=== PATIENT | female | born 1955 | race Caucasian/White ===

== ENCOUNTER → 2017-06-02 15:21 | Outpatient (CLI) | payer BC, SELFPAY ==
--- NOTE | 2017-06-02 15:23 | MM_ITS ---
MM Dig screening mamm BI w/CAD CAD Screening COMPARISON: Digital mammograms 04/19/2015 and follow-up additional views right breast 05/01/2015 and digital mammograms 04/30/2016 INDICATION: There is a history of breast cancer patient maternal cousin and paternal grandmother. There has been a previous cyst aspiration right breast. TECHNIQUE: Standard CC and MLO images were obtained. R2 CAD reviewed. FINDINGS: Prominent heterogenic fibroglandular densities are seen in both breast somewhat lessening the sensitivity of mammography. There are 2 mole markers right breast. There a few benign-appearing calcifications in each breast. There is no suspicious lesion and there are no suspicious microcalcifications. IMPRESSION: Stable exam no suspicious lesion seen recommend yearly follow-up BI-RADS Category: 2 Benign Finding(s) RECOMMENDED FOLLOW-UP: 1YR - 1 YEAR FOLLOW-UP (A letter has been sent to the patient regarding results of the study.)
== END ==
PROVIDERS: PCP Family Medicine; Visit Provider Obstetrics & Gynecology
DX: Z12.31 Encounter for screening mammogram for malignant neoplasm of breast (principal)
CPT/HCPCS: 77066; 77067

== ENCOUNTER → 2017-06-12 10:25 | Outpatient (CLI) | payer BC, SELFPAY ==
--- NOTE | 2017-06-12 10:33 | US_ITS ---
US kidney retroperitoneal comp HISTORY: ITS.REASON: ACUTE CYSTITIS WITH HEMATURIA ORDERING PHYSICIAN: Jeevan Mendez MD PATIENT AGE: 62 years COMPARISON: None FINDINGS: RIGHT KIDNEY:Unremarkable. Normal size and echogenicity. No hydronephrosis 11 x 5 x 5.5 cm LEFT KIDNEY:Unremarkable. No hydronephrosis. Normal size and echogenicity. 10 x 5.5 x 4.7 cm OTHER FINDINGS: On 1 image there is increased echogenicity along the lateral aspect of the gallbladder may be related to a gallstone. Dedicated gallbladder ultrasound may be of further value. IMPRESSION: 1. Unremarkable bilateral renal ultrasound 2. Possible cholelithiasis
== END ==
PROVIDERS: PCP Family Medicine; Visit Provider Family Medicine
DX: N30.01 Acute cystitis with hematuria (principal)
CPT/HCPCS: 76770

== ENCOUNTER → 2017-06-19 08:07 | Outpatient (CLI) | payer BC, SELFPAY ==
--- NOTE | 2017-06-19 08:12 | US_ITS ---
US abdomen limited COMPARISON: Ultrasound the kidneys 06/12/2017 HISTORY: Possible gallstone seen on recent ultrasound the kidneys TECHNIQUE: Targeted ultrasound right upper quadrant FINDINGS: The gallbladder is normal in size and there is a large calcified gallstone near the neck measuring 1.4 cm in length with discrete acoustic shadowing beneath. The common bile duct is normal in caliber. There is no intrahepatic biliary ductal dilatation. The liver appears grossly normal. The pancreas is normal in size showing mild fatty infiltration. Right kidney measures 11.4 x 3.9 x 4.9 cm and shows a good cortical medullary junction with no hydronephrosis. IMPRESSION: Obvious cholelithiasis
== END ==
PROVIDERS: PCP Family Medicine; Visit Provider Family Medicine
DX: R93.2 Abnormal findings on diagnostic imaging of liver and biliary tract (principal)
CPT/HCPCS: 76705

== ENCOUNTER → 2017-07-21 08:59 | Outpatient (CLI) | payer BC, SELFPAY ==
[2017-07-21 10:22] LABS: Basophils % 0.4 % (0.1-2.0); Eosinophils # 0.1 K/mm3 (0.0-0.4); Eosinophils % 1.1 % (0.1-12.0); Hematocrit 37.4 % (37.0-47.0); Hemoglobin 12.4 g/dL (12.2-16.2); Lymphocytes # 3.9 K/mm3 (0.7-4.5); Lymphocytes % 42.5 K/mm3 (10-50); Mean Corpuscular HGB Conc 33.1 g/dL (31.8-35.4); Mean Corpuscular Hemoglobin 31.8 pg (27.0-31.2); Mean Corpuscular Volume 96.1 fl (81-99); Mean Platelet Volume 7.9 fl (7.4-10.4); Monocytes # 0.4 K/mm3 (0.1-1.0); Monocytes % 4.7 % (1.7-9.3); Neutrophils # 4.7 K/mm3 (1.8-7.8); Neutrophils % 51.2 % (37.0-80.0); Platelet Count 246 K/mm3 (142-424); Red Blood Count 3.89 M/mm3 (4.20-5.40); Red Cell Distribution Width 13.3 % (11.5-17.5); White Blood Count 9.1 K/mm3 (4.8-10.8)
[2017-07-21 10:35] LABS: Alanine Aminotransferase 15 U/L (12-78); Albumin Level 3.2 gm/dL (3.4-5.0); Albumin/Globulin Ratio 0.8 (1.1-1.8); Alkaline Phosphatase 112 U/L (46-116); Anion Gap 11.1 mEq/L (5-15); Aspartate Amino Transferase 12 U/L (15-37); Bilirubin,Total 0.2 mg/dL (0.2-1.0); Blood Urea Nitrogen 11 mg/dL (7-18); Calcium 8.6 mg/dL (8.5-10.1); Carbon Dioxide 27 mmol/L (21.0-32.0); Chloride 106 mmol/L (98-107); Chol/HDL Ratio 5.4 (1-3.5); Cholesterol 227 mg/dL (140-200); Creatinine,Serum 0.58 mg/dL (0.55-1.02); Estimated Glomerular Filt Rate 105 ml/min (>60); Free T4 (Free Thyroxine) 0.79 ng/dl (0.76-1.46); GFR (African American) 127 ML/MIN (>60); Globulin 3.8 gm/dl (1.3-3.2); Glucose 103 mg/dL (74-106); HDL Cholesterol 42 mg/dL (29-89); LDL Cholesterol 139 mg/dL (0-130); Potassium 4.1 mmoL/L (3.5-5.1); Sodium 140 mmol/L (136-145); Thyroid Stimulating Hormone 2.76 uIU/ml (0.358-3.740); Triglycerides 230 mg/dL (30-200); VLDL Cholesterol 46 mg/dL (0-40)
== END ==
PROVIDERS: Visit Provider Surgery
DX: K80.20 Calculus of gallbladder without cholecystitis without obstruction (principal)
CPT/HCPCS: 36415; 80053; 80061; 84439; 84443; 85025

== ENCOUNTER → 2017-10-28 11:27 | Outpatient (CLI) | payer BC, SELFPAY ==
--- NOTE | 2017-10-28 11:33 | XR_ITS ---
EXAM: XR cervical spine 5V HISTORY: ITS.REASON: NECK PAIN ORDERING PHYSICIAN: Sarah Lobo MD PATIENT AGE: 62 years COMPARISON: None FINDINGS: There is straightening of normal curvature. C1-C6 appear grossly normal. C7 is only faintly seen on the lateral view and is grossly intact but the C7-T1 disc space is not evaluated. Oblique films show normal neural foramina bilaterally. C7 is well seen on the oblique views and appears normal. The prevertebral soft tissues are normal and the odontoid is normal. IMPRESSION: Findings suggesting muscle spasm, no bony abnormality seen
== END ==
PROVIDERS: PCP Family Medicine; Visit Provider Emergency Medicine
DX: M54.2 Cervicalgia (principal)
CPT/HCPCS: 72050

== ENCOUNTER → 2018-06-08 15:51 | Outpatient (CLI) | payer MEDICARE, BC, SELFPAY ==
--- NOTE | 2018-06-08 15:56 | MM_ITS ---
MM Dig screening mamm BI w/CAD CAD Screening COMPARISON: Digital mammograms with CAD 04/30/2016 and 06/02/2017 INDICATION: There is a history of breast cancer patient's paternal aunt mother and maternal cousin. There has been a previous biopsy right breast for benign disease. TECHNIQUE: Standard CC and MLO images were obtained. R2 CAD reviewed. FINDINGS: There is a diffusely dense and heterogenic parenchymal pattern lessening the sensitivity of mammography. There is a mole marker right breast along with multiple benign-appearing microcalcifications. There are couple of benign-appearing microcalcifications left breast as well. There is no suspicious lesion and there are no suspicious microcalcifications. IMPRESSION: Diffusely dense parenchymal pattern with no suspicious lesion seen BI-RADS Category: 2 Benign Finding(s) RECOMMENDED FOLLOW-UP: 1YR - 1 YEAR FOLLOW-UP (A letter has been sent to the patient regarding results of the study.)
== END ==
PROVIDERS: PCP Family Medicine; Visit Provider Obstetrics & Gynecology
DX: Z12.31 Encounter for screening mammogram for malignant neoplasm of breast (principal)
CPT/HCPCS: 77067

== ENCOUNTER → 2019-10-03 10:40 | Outpatient (CLI) | payer MEDICARE, BC, SELFPAY ==
[2019-10-03 14:18] LABS: Coronavirus 19 IgG Antibody Negative (Negative); Coronavirus 19 IgM Antibody Negative (Negative)
== END ==
PROVIDERS: Visit Provider Surgery
DX: Z01.818 Encounter for other preprocedural examination (principal)
CPT/HCPCS: 36415; 86328

== ENCOUNTER 2019-10-04 07:43 | Day surgery (SDC) | payer MEDICARE, BC, SELFPAY ==
--- NOTE | 2019-09-30 14:55 | SUR.PREOP ---
09/30/2019 @ 3619--PHONE CALL MADE TO PATIENT. PATIENT UNDERSTANDS THAT LAB WORK AND COVID TESTING NEEDS TO BE COMPLETED BETWEEN 8-12 ON 10/03/2019. PATIENT UNDERSTANDS IF LAB WORK AND COVID-19 TESTS ARE NOT COMPLETED BY 12PM ON THAT DATE, THE SURGERY SCHEDULED WILL BE CANCELLED AND RESCHEDULED FOR ANOTHER TIME.
[2019-10-03 09:03] VITALS: BMI 30.7
[2019-10-04 08:19] VITALS: BP 157/77; PULSE 66; RESP 18; TEMP 36.6; O2SAT 97
--- NOTE | 2019-10-04 08:30 | HMH.GSHP ---
HPI HPI: Patient presents for colonoscopy. She is a 64-year-old female whom I had seen in the past extensively for upper GI issues and have performed several upper endoscopies on her for surveillance. She has had hyperplastic polyps. She has been on pantoprazole. I had performed colonoscopy on her 5 years ago on 04/18/2014. It was recommended she undergo colonoscopy 5 years given family history with colon cancer in her mother, maternal grandfather, and brother. She is without complaints regarding changes in her bowels or rectal bleeding. [facility] History I have reviewed the patient's past medical history: Yes Medical History: Reports:: Gall Bladder Disease, Gastroesophageal Reflux Disease(GERD), Urinary Tract Infection Denies:: Cancer, Diabetes Mellitus Type 1, Diabetes Mellitus Type 2, Internal Pacemaker, MRSA, Seizures *Have you ever received a pneumonia vaccine?: Yes *Have you received a flu vaccine this season?: No Other Medical History: Reports: Hypothyroidism, Thyroid Disease. Denies: Blood Transfusion Reaction Laterality Cases: Bilateral: Breast Biopsy Other Surgeries: Yes: Appendectomy, Colonoscopy, , Dilation and Curettage, EGD, Hysterectomy-Total, Other. No: Pacemaker Amputation: No Fractures: No - *Social History Educational Level: Completed High School Smoking Status: Never smoker Alcohol Intake: current Alcohol Intake Frequency:: 0-2 drinks per day Substance Use Type: denies use *Occupational Status:: unemployed Housing: house Household Members: spouse *Travel in the last 8 weeks: None Family Hx:: Diabetes, Coronary Artery Disease, Cancer Review of Systems - Review of Systems Review of systems:: pertinent systems reviewed and negative unless documented below Meds Home Medications Medication Instructions Recorded Confirmed Type flaxseed oil 1,000 mg capsule 1,000 mg PO DAILY 05/20/17 10/04/19 History levothyroxine 25 mcg capsule 25 mcg PO DAILY 05/20/17 10/04/19 History mecobalamin (vitamin B12) 5,000 5,000 mcg PO DAILY 05/20/17 10/04/19 History mcg disintegrating tablet vitamin E 200 unit capsule 200 unit PO DAILY 05/20/17 10/04/19 History pantoprazole 40 mg tablet,delayed 40 mg PO QAM #30 tab 06/02/18 10/04/19 Rx release [id number]/Sod Sulf,Bicarb,Cl/KCl 240 ml PO Q10M 10/03/19 10/04/19 History [Golytely] Sod Phosphate Mbas/Sod Phos,Di 4 tab PO Q15M 10/03/19 10/04/19 History [OsmoPrep] estradioL [Estradiol] 1 mg PO DAILY 10/03/19 10/04/19 History Allergies Allergy/AdvReac Type Severity Reaction Status Date / Time No Known Allergies Allergy Verified 10/04/19 08:20 Exam Vital signs and Labs for Last 24 Hours: Temp Pulse Resp BP Pulse Ox 97.8 F 66 18 157/77 H 97 10/04/19 08:19 10/04/19 08:19 10/04/19 08:19 10/04/19 08:19 10/04/19 08:19 I & O for Last 24 hours: Intake & Output 10/01/19 10/02/19 10/03/19 10/04/19 11:59 11:59 11:59 11:59 Weight 157 lb - *Routine HEENT Exam Head: Present: normocephalic Eye: Present: EOMI, PERRL ENT: Present: mucous membranes moist - *Routine Neck Exam Present: supple. Absent: lymphadenopathy - *Routine Respiratory Exam Present: CTA bilaterally - *Routine Cardiovascular Exam Present: RRR - *Routine Abdominal Exam Present: soft, normoactive bowel sounds. Absent: tenderness - *Routine Extremities Exam Absent: cyanosis, clubbing, edema - *Routine Skin Exam Present: warm. Absent: rash - *Routine Neurological Exam Present: alert, oriented X3 Assessment and Plan - Assessment and plan all Dx Assessment and Plan for all problems:: Plan to proceed with colonoscopy due to family history
--- NOTE | 2019-10-04 09:03 | P.PN_ITS ---
[facility] Anesthesia Checklist - Patient Identification Patient Identification: Arm Band, Verbal (Name & ) - Structural Data Admitted From: Home Planned Operative Procedure/s: colon Consent for Planned Operative Procedure(s) Verified: Yes Verified Documents: History and Physical - NPO Status Verified Time NPO: 00:00 - Chart Verification Results Verified: CBC, BMP - Additional verifications Patient : No Anesthesia Reactions: No Hx Blood Transfusions: No Blood Transfusion Reaction: No Cephalosporin Allergy: No Previous Colonoscopy: Yes - Cardiovascular Assessment Heart Sounds: S1 & S2 Pulse Strength: Baseline Pulse Rhythm: Regular Peripheral Edema: No - Airway Assessment C-Spine Mobility Assessed: Yes TMJ Mobility Assessed: Yes Dentition: Good Dentition - Neurological Assessment Level of Consciousness: Awake, Alert, Appropriate Hx Seizures: No Numbness or tingling in extremities: No - Anesthesia Plan Anesthesia Risk discussed: Yes Anesthesia Plan: Verified ASA Class: II Anesthesia Type: MAC [facility] History I have reviewed the patient's past medical history: Yes Medical History: Reports:: Gall Bladder Disease, Gastroesophageal Reflux Disease(GERD), Urinary Tract Infection Denies:: Cancer, Diabetes Mellitus Type 1, Diabetes Mellitus Type 2, Internal Pacemaker, MRSA, Seizures *Have you ever received a pneumonia vaccine?: Yes *Have you received a flu vaccine this season?: No Other Medical History: Reports: Hypothyroidism, Thyroid Disease. Denies: Blood Transfusion Reaction Anesthesia experience/problems:: none Laterality Cases: Bilateral: Breast Biopsy Other Surgeries: Yes: Appendectomy, Colonoscopy, , Dilation and Curettage, EGD, Hysterectomy-Total, Other. No: Pacemaker Amputation: No Fractures: No - *Social History Educational Level: Completed High School Smoking Status: Never smoker Alcohol Intake: current Alcohol Intake Frequency:: 0-2 drinks per day Substance Use Type: denies use *Occupational Status:: unemployed Housing: house Household Members: spouse *Travel in the last 8 weeks: None Family Hx:: Diabetes, Coronary Artery Disease, Cancer
[2019-10-04 09:09] VITALS: O2SAT 97
[2019-10-04 09:42] VITALS: BP 140/72; PULSE 89; RESP 20; TEMP 36.3; O2SAT 96
--- NOTE | 2019-10-04 09:43 | P.PCN_ITS ---
- Procedure: Date: 10/04/19 Procedure Performed:: Total colonoscopy with polypectomy by snare Indications:: Patient presents for colonoscopy. She is a 64-year-old female whom I had seen in the past extensively for upper GI issues and have performed several upper endoscopies on her for surveillance. She has had hyperplastic polyps. She has been on pantoprazole. I had performed colonoscopy on her 5 years ago on 04/18/2014. It was recommended she undergo colonoscopy 5 years given family hi story with colon cancer in her mother, maternal grandfather, and brother. She states the morning of her procedure that a maternal cousin was diagnosed with colon cancer recently. She is without complaints regarding changes in her bowels or rectal bleeding. Performing Provider:: Edin Pierce MD Referring Provider:: None Sedation:: Propofol Procedure:: Patient was taken to endoscopy procedure room. She was positioned in a lateral decubitus position. Adequate intravenous sedation was achieved with anesthesia titration of propofol. Variable stiffness Olympus colonoscope was inserted via the anus and with some minimal difficulty due to floppiness of the sigmoid colon it was advanced to the cecum. Appendiceal orifice were clearly identified. Colonoscope was slowly withdrawn through the colon with careful surveillance. Within the ascending colon it was noted that she had a small polyp which was removed upon advancement of the colonoscope with cold cutting snare. This was possibly serrated adenoma based on its appearance. Colonoscope was withdrawn through the colon. There were possibly some beginnings of some minimal diverticuli in the left colon. Retroflexion within the rectum revealed some nonbleeding nonpathologic appearing internal hemorrhoids. Colonoscope was withdrawn. Findings:: Ascending colon polyp, possibly serrated adenoma Hemorrhoids Beginnings of diverticuli Recommendations:: Pending the pathology likely repeat colonoscopy 2 or 3 years. Complications:: None immediately apparent Estimated blood obtained (mL): 2
[2019-10-04 09:52] VITALS: BP 126/69; PULSE 69; RESP 18; TEMP 36.3; O2SAT 98
[2019-10-04 10:02] VITALS: BP 125/72; PULSE 65; RESP 20; TEMP 36.3; O2SAT 97
[2019-10-04 10:16] VITALS: BP 122/87; PULSE 62; RESP 20; TEMP 36.3; O2SAT 98
== END 2019-10-04 10:17 | disposition home or self-care (01) ==
LOC: OUTP 07:45
PROVIDERS: PCP Family Medicine; Visit Provider Surgery
PROC: 0DJD8ZZ Inspection of Lower Intestinal Tract, Via Natural or Artificial Opening Endoscopic (ICD-10-PCS; CPT 45385; principal; 2019-10-04 09:00)
DX: K63.5 Polyp of colon (principal); K57.30 Diverticulosis of large intestine without perforation or abscess without bleeding; K64.9 Unspecified hemorrhoids; Z87.19 Personal history of other diseases of the digestive system; Z80.0 Family history of malignant neoplasm of digestive organs; K82.9 Disease of gallbladder, unspecified; K21.9 Gastro-esophageal reflux disease without esophagitis; Z87.440 Personal history of urinary (tract) infections; E03.9 Hypothyroidism, unspecified; Z90.49 Acquired absence of other specified parts of digestive tract; Z90.710 Acquired absence of both cervix and uterus; Z79.899 Other long term (current) drug therapy; Z12.11 Encounter for screening for malignant neoplasm of colon
CPT/HCPCS: 45385; 88305

== ENCOUNTER 2019-12-05 09:54 | Emergency (ER) | payer MEDICARE, BC, SELFPAY ==
[2019-12-05] VITALS (7 sets, daily range): BP systolic 140–172; BP diastolic 70–92; PULSE 65–66; RESP 15–22; TEMP 36.7–36.8; O2SAT 97–99; BMI 30.2
--- NOTE | 2019-12-05 09:52 | ECG_ITS ---
APPROVED REPORT Exam: Resting ECG HR:63 bpm ECG Measurements Heart Rate 63 AXES AR 176 P 65 QRSd 84 QRS -63 QT 426 T 80 QTc 435 <Conclusion> Normal sinus rhythm Left axis deviation,LAHB Incomplete RBBB Abnormal ECG Electronically signed by : Jono Gordon, 12/05/2019 18:38:28
--- NOTE | 2019-12-05 10:01 | XR_ITS ---
PROCEDURE: XR CHEST 2V CLINICAL HISTORY: CP Chest pain COMPARISON: CR CXR CHEST(2 VIEWS-NOT PORTABLE) from 04/22/2013 FINDINGS: The cardiomediastinal silhouette and pulmonary vascularity are within normal limits. The lungs are clear without infiltrates, suspicious nodules, or pleural effusions. No acute bony abnormalities. IMPRESSION: No acute findings. Dictated by: Juan F Medellin MD 12/05/2019 11:31 Juan F Medellin MD in [facility] 12/05/2019 11:31
[2019-12-05 10:14] LABS: Basophils # 0.1 K/mm3 (0-0.2); Basophils % 0.6 % (0.1-2.0); Eosinophils # 0.1 K/mm3 (0.0-0.4); Eosinophils % 1.4 % (0.1-12.0); Hematocrit 39.3 % (37.0-47.0); Hemoglobin 13.2 g/dL (12.2-16.2); Lymphocytes # 4.2 K/mm3 (0.7-4.5); Lymphocytes % 43.3 % (10-50); Mean Corpuscular HGB Conc 33.7 g/dL (31.8-35.4); Mean Corpuscular Hemoglobin 32.6 pg (27.0-31.2); Mean Corpuscular Volume 96.9 fl (81-99); Mean Platelet Volume 7.8 fl (7.4-10.4); Monocytes # 0.5 K/mm3 (0.1-1.0); Monocytes % 5.2 % (1.7-9.3); Neutrophils # 4.8 K/mm3 (1.8-7.8); Neutrophils % 49.5 % (37.0-80.0); Platelet Count 245 K/mm3 (142-424); Red Blood Count 4.06 M/mm3 (4.20-5.40); Red Cell Distribution Width 13.8 % (11.5-17.5); White Blood Count 9.8 K/mm3 (4.8-10.8)
--- NOTE | 2019-12-05 10:19 | HMH.EDGENADL ---
ED Disposition Clinical Impression: Atypical chest pain, Musculoskeletal back pain, Gastric reflux Disposition: Home, Self-Care Condition on Discharge: Good Instructions: DI for Gastroesophageal Reflux Disease (GERD), DI for Atypical Chest Pain, DI for Musculoskeletal Pain Referrals: Joaquim Don MD [Primary Care Provider] - Time of Disposition: 11:47 - Critical Care Critical Care Time: No Attestation: On 12/05/19, the high probability of a clinically significant, sudden or life threatening deterioration of the following system(s) required my full and direct attention, intervention and personal management. The time I documented below is in addition to time spent performing reported procedures but includes the following listed in this critical care notation. Medical Decision Making - Medical Records Medical records reviewed: Yes: I reviewed the patient's medical records. - [place] Inquiry Pt receiving controlled substance: No Vital Signs: 12/05/19 09:55 12/05/19 10:25 12/05/19 10:30 Temperature 98.2 F Temperature Source Oral Pulse Rate Pulse Rate [Right] 66 65 65 Respiratory Rate 15 18 18 Blood Pressure Blood Pressure [Right Arm] 172/83 H 154/75 H 156/79 H Blood Pressure Mean [Right Arm] 112 101 104 Blood Pressure Source Blood Pressure Source [Right Arm] Automatic Cuff Blood Pressure Position Blood Pressure Position [Right Arm] Supine 02 Sat by Pulse Oximetry 98 99 99 Oxygen Delivery Method 12/05/19 11:00 12/05/19 11:30 12/05/19 12:00 Temperature Temperature Source Pulse Rate Pulse Rate [Right] 66 65 66 Respiratory Rate 22 18 18 Blood Pressure Blood Pressure [Right Arm] 159/92 H 144/73 H 140/70 Blood Pressure Mean [Right Arm] 114 96 93 Blood Pressure Source Blood Pressure Source [Right Arm] Automatic Cuff Automatic Cuff Automatic Cuff Blood Pressure Position Blood Pressure Position [Right Arm] Supine Supine Supine 02 Sat by Pulse Oximetry 97 99 99 Oxygen Delivery Method 12/05/19 12:47 Temperature 98.1 F Temperature Source Oral Pulse Rate 66 Pulse Rate [Right] Respiratory Rate 18 Blood Pressure 140/70 Blood Pressure [Right Arm] Blood Pressure Mean [Right Arm] Blood Pressure Source Automatic Cuff Blood Pressure Source [Right Arm] Blood Pressure Position Sitting Blood Pressure Position [Right Arm] 02 Sat by Pulse Oximetry Oxygen Delivery Method Room Air - Lab Data Lab Results 12/05/19 10:00: WBC 9.8, RBC 4.06 L, Hgb 13.2, Hct 39.3, MCV 96.9, MCH 32.6 H, MCHC 33.7, RDW 13.8, Plt Count 245, MPV 7.8, Neut % (Auto) 49.5, Lymph % (Auto) 43.3, Darke % (Auto) 5.2, Eos % (Auto) 1.4, Baso % (Auto) 0.6, Neut # (Auto) 4.8, Lymph # (Auto) 4.2, Darke # (Auto) 0.5, Eos # (Auto) 0.1, Baso # (Auto) 0.1 12/05/19 10:00: Sodium 138, Potassium 3.8, Chloride 103, Carbon Dioxide 27, Anion Gap 11.8, BUN 11, Creatinine 0.50 L, Estimated Creat Clear 61, Estimated GFR 123, Est GFR ( Amer) 149, Glucose 107 H, Calcium 9.3, Troponin I < 0.01 12/05/19 10:00: NT-Pro-B Natriuret Pep 135 H 12/05/19 10:00: D-Dimer 0.44 12/05/19 12:01: Troponin I < 0.01 Result diagrams: 12/05/19 10:00 12/05/19 10:00 Orders (Tests/Meds): ED MEDICATIONS Discontinued Medications Generic Name Dose Route Start Last Admin Trade Name Andrei PRN Reason Stop Dose Admin Aspirin 324 mg 12/05/19 10:01 12/05/19 10:03 Aspirin 81mg Chewable Tablet PO 12/05/19 10:02 324 mg ONCE ONE Administration Ioversol 75 ml 12/05/19 11:08 12/05/19 11:09 Rad-Optiray 350 100ml Vial IV 12/05/19 11:09 75 ml ONCE ONE Administration Protocol Ketorolac Tromethamine 15 mg 12/05/19 11:44 12/05/19 11:47 Toradol 30mg/Ml Vial IV 12/05/19 11:45 15 mg ONCE ONE Administration Sodium Chloride 10 ml 12/05/19 11:08 12/05/19 11:09 Rad-Saline Flush 10ml Syringe IV 12/05/19 11:09 10 ml ONCE ONE Administration Sodium Chloride 50 ml 12/05/19 11:08 12/04
[2019-12-05 10:21] LABS: Anion Gap 11.8 mEq/L (5-15); Blood Urea Nitrogen 11 mg/dl (7-17); Calcium 9.3 mg/dl (8.4-10.2); Carbon Dioxide 27 mmol/L (22.0-30.0); Chloride 103 mmol/L (98-107); Creatinine Clearance Estimated 61 mL/min (50-200); Estimated Glomerular Filt Rate 123 ml/min (>60); GFR (African American) 149 ML/MIN (>60); Glucose 107 mg/dl (74-100); Potassium 3.8 mmoL/L (3.5-5.1); Sodium 138 mmol/L (136-145)
[2019-12-05 10:26] LABS: D-Dimer 0.44 ug/mL (0.15-8.0)
[2019-12-05 10:32] LABS: NT Pro Brain Natriuretic Pep. 135 pg/mL (0-125)
[2019-12-05 10:35] LABS: Troponin I < 0.01 ng/ml (0.00-0.034)
--- NOTE | 2019-12-05 10:43 | CT_ITS ---
PROCEDURE: CT ANGIO CHEST CLINCIAL INDICATION: chest pain, radiating to back COMPARISON: No exams were available for comparison TECHNIQUE: IV Contrast: 70ML OPTIRAY 350 Axial images obtained with sagittal and coronal reformats. All CT scans at the facility use one or more dose reduction, viz: automated exposure control, ma/kV adjustment per patient size (including targeted exams where dose is matched to indication, i.e. head), or iterative reconstruction technique. FINDINGS: HEART AND MEDIASTINAL STRUCTURES: No mediastinal or hilar mass or adenopathy. No evidence of aortic aneurysm or dissection. Coronary artery calcifications are present. There is no evidence of pulmonary embolus. There is mild dilatation the right main pulmonary artery measuring 2.8 cm. LUNGS AND PLEURAL SPACES: No lobar consolidation or collapse. There is minimal atelectatic change in the left lower lobe posteriorly. BONY STRUCTURES: Degenerative changes in the thoracic spine UPPER ABDOMEN: Unremarkable. ADDITIONAL FINDINGS: No other significant abnormalities. IMPRESSION: 1. No acute finding. No evidence of pulmonary embolus. 2. Nonspecific mild dilatation of the right main pulmonary artery Dictated by: Juan F Medellin MD 12/05/2019 11:26 Juan F Medellin MD in [facility] 12/05/2019 11:26
--- NOTE | 2019-12-05 10:59 | PC.NURSE ---
pt going to ct
[2019-12-05 12:37] LABS: Troponin I < 0.01 ng/ml (0.00-0.034)
== END 2019-12-05 12:48 | disposition home or self-care (01) ==
PROVIDERS: Emergency Provider Emergency Medicine; PCP Family Medicine
DX: R07.89 Other chest pain (principal); K21.9 Gastro-esophageal reflux disease without esophagitis; E03.9 Hypothyroidism, unspecified; Z90.49 Acquired absence of other specified parts of digestive tract; Z90.710 Acquired absence of both cervix and uterus; R06.02 Shortness of breath
CPT/HCPCS: 71046; 71275; 80048; 83880; 84484; 85025; 85378; 93005; 96374; 99284; Q9967

== ENCOUNTER → 2020-08-02 13:04 | Outpatient (CLI) | payer MEDICARE, BC, SELFPAY ==
--- NOTE | 2020-08-02 13:04 | MM_ITS ---
PROCEDURE INFORMATION: Exam: MG Screening 3D Mammography Exam date and time: 08/02/2020 1:04 PM Age: 65 years old Clinical indication: Screening mammogram. Family history of breast cancer TECHNIQUE: Imaging protocol: Screening tomosynthesis and 2D mammography including computer-aided detection (CAD) when performed. COMPARISON: 1. MG SCBI MM Dig screening mamm BI w/CAD 06/08/2018 4:08 PM 2. MG SCBI MM Dig screening mamm BI w/CAD 06/02/2017 3:43 PM 3. MG DMSB DIG MAMM-SCREEN ALEXY W/CAD 04/30/2016 9:13 AM 4. MG DMDXUAVR DIG MAMM-DX UNI ADD VIEWS-RT 05/01/2015 1:06 PM FINDINGS: MAMMOGRAPHY: Breast composition: The breast tissue is heterogeneously dense, which may obscure small masses. Mass: Stable benign-appearing nodule is present in the left breast. No new or morphologically suspicious nodule has developed to suggest malignancy. Architectural distortion: No new or suspicious architectural distortion. Calcifications: No new or suspicious calcifications are present Asymmetric density: No new or suspicious asymmetric density is present Skin thickening: None. Axillary adenopathy: None. IMPRESSION: No mammographic evidence of malignancy. Recommend annual screening mammography unless otherwise clinically indicated. ASSESSMENT: BI-RADS category 2: Benign
== END ==
PROVIDERS: PCP Family Medicine; Visit Provider Obstetrics & Gynecology
DX: Z12.31 Encounter for screening mammogram for malignant neoplasm of breast (principal)
CPT/HCPCS: 77063; 77067

== ENCOUNTER → 2020-10-09 11:18 | Outpatient (POV) | payer MEDICARE, BC, SELFPAY | PROVIDERS: Visit Provider Dermatology | DX: Z00.00 Encounter for general adult medical examination without abnormal findings (principal) ==

== ENCOUNTER → 2022-01-01 09:01 | Outpatient (CLI) | payer MEDICARE, BC, SELFPAY ==
[2022-01-01 10:48] LABS: Chloride 99 mmol/L (98-107); Potassium 5.3 mmoL/L (3.5-5.1); Sodium 138 mmol/L (136-145)
[2022-01-01 10:51] LABS: Alanine Aminotransferase 14 U/L (12-78); Albumin/Globulin Ratio 1.4 (1.1-1.8); Alkaline Phosphatase 95 U/L (38-126); Anion Gap 12.3 mEq/L (5-15); Aspartate Amino Transferase 20 U/L (14-36); Bilirubin,Total 0.2 mg/dl (0.2-1.3); Blood Urea Nitrogen 19 mg/dl (7-17); Carbon Dioxide 32 mmol/L (22.0-30.0); Chol/HDL Ratio 5.6 (1-3.5); Cholesterol 288 mg/dl (140-200); Estimated Glomerular Filt Rate 71 ml/min (>60); GFR (African American) 86 ML/MIN (>60); Globulin 2.9 g/dL (1.3-3.2); Glucose 86 mg/dl (74-100); HDL Cholesterol 51 mg/dl (40-60); Total Protein,Serum 6.9 g/dl (6.3-8.2); Triglycerides 217 mg/dl (30-150); VLDL Cholesterol 43 mg/dL (0-40)
[2022-01-01 11:03] LABS: Direct LDL Cholesterol 199.99 mg/dL (100-129)
[2022-01-01 11:22] LABS: Thyroid Stimulating Hormone 3.02 uIU/mL (0.465-4.68)
== END ==
PROVIDERS: PCP Family Medicine; Visit Provider Family Medicine
DX: E78.5 Hyperlipidemia, unspecified (principal); E03.9 Hypothyroidism, unspecified
CPT/HCPCS: 36415; 80053; 80061; 84443

== ENCOUNTER → 2022-07-03 09:35 | Outpatient (CLI) | payer MEDICARE, BC, SELFPAY ==
[2022-07-03 10:28] LABS: Alanine Aminotransferase 20 U/L (12-78); Albumin Level 3.9 g/dl (3.5-5.0); Albumin/Globulin Ratio 1.6 (1.1-1.8); Alkaline Phosphatase 106 U/L (38-126); Anion Gap 10.2 mEq/L (5-15); Aspartate Amino Transferase 25 U/L (14-36); Bilirubin,Total 0.3 mg/dl (0.2-1.3); Blood Urea Nitrogen 13 mg/dl (7-17); Calcium 8.4 mg/dl (8.4-10.2); Carbon Dioxide 26 mmol/L (22.0-30.0); Chloride 104 mmol/L (98-107); Cholesterol 140 mg/dl (140-200); Estimated Glomerular Filt Rate 99 ml/min (>60); GFR (African American) 120 ML/MIN (>60); Globulin 2.5 g/dL (1.3-3.2); Glucose 104 mg/dl (74-100); HDL Cholesterol 46 mg/dl (40-60); Potassium 4.2 mmoL/L (3.5-5.1); Sodium 136 mmol/L (136-145); Total Protein,Serum 6.4 g/dl (6.3-8.2); Triglycerides 140 mg/dl (30-150); VLDL Cholesterol 28 mg/dL (0-40)
[2022-07-03 10:40] LABS: Direct LDL Cholesterol 78.84 mg/dL (100-129)
[2022-07-03 10:44] LABS: Free T4 (Free Thyroxine) 0.76 ng/dl (0.78-2.19)
[2022-07-03 10:58] LABS: Thyroid Stimulating Hormone 1.68 uIU/mL (0.465-4.68)
== END ==
PROVIDERS: PCP Physician Assistant; Visit Provider Physician Assistant
DX: E03.9 Hypothyroidism, unspecified (principal); E78.2 Mixed hyperlipidemia; I10 Essential (primary) hypertension
CPT/HCPCS: 36415; 80053; 80061; 84439; 84443

== ENCOUNTER → 2022-07-07 12:49 | Outpatient (CLI) | payer MEDICARE, BC, SELFPAY ==
--- NOTE | 2022-07-07 12:50 | MM_ITS ---
PROCEDURE INFORMATION: Exam: MG Bilateral Screening 3D Mammography Exam date and time: 07/07/2022 12:49 PM Age: 67 years old Clinical indication: Screening. Her paternal grandmother and cousin had breast cancer. TECHNIQUE: Imaging protocol: Bilateral Screening tomosynthesis and 2D mammography including computer-aided detection (CAD) when performed. COMPARISON: 1. MG MM DIG SCREENING MAMM BI W/CAD 08/02/2020 1:01 PM 2. MG SCBI MM Dig screening mamm BI w/CAD 06/08/2018 4:08 PM 3. MG SCBI MM Dig screening mamm BI w/CAD 06/02/2017 3:43 PM 4. MG DMSB DIG MAMM-SCREEN ALEXY W/CAD 04/30/2016 9:13 AM FINDINGS: MAMMOGRAPHY: Breast composition: The breasts are heterogeneously dense, which may obscure small masses. Mass: No suspicious mass Architectural distortion: None. Calcifications: No suspicious calcifications. Asymmetric density: None. Skin thickening: None. Axillary adenopathy: None. Other: Right biopsy clip. IMPRESSION: No mammographic evidence of malignancy. Annual screening is recommended unless otherwise clinically indicated. ASSESSMENT: BI-RADS Category 1: Negative
== END ==
PROVIDERS: PCP Physician Assistant; Visit Provider Obstetrics & Gynecology
DX: Z12.31 Encounter for screening mammogram for malignant neoplasm of breast (principal)
CPT/HCPCS: 77063; 77067

== ENCOUNTER 2023-06-10 13:26 | Outpatient (CLI) | payer MEDICARE, BC, SELFPAY ==
[2023-06-10 15:21] LABS: Creatinine,Urine Random 106 mg/dL (Not Estab.)
[2023-06-10 15:24] LABS: Alanine Aminotransferase 18 U/L (12-78); Albumin Level 4.3 g/dl (3.5-5.0); Albumin/Globulin Ratio 1.4 (1.1-1.8); Alkaline Phosphatase 111 U/L (38-126); Anion Gap 10.1 mEq/L (5-15); Aspartate Amino Transferase 26 U/L (14-36); Bilirubin,Total 0.6 mg/dl (0.2-1.3); Blood Urea Nitrogen 10 mg/dl (7-17); Calcium 9.2 mg/dl (8.4-10.2); Carbon Dioxide 28 mmol/L (22.0-30.0); Chloride 105 mmol/L (98-107); Chol/HDL Ratio 3.6 (1-3.5); Cholesterol 191 mg/dl (140-200); Estimated Glomerular Filt Rate 99 ml/min (>60); GFR (African American) 120 ML/MIN (>60); Glucose 97 mg/dl (74-100); HDL Cholesterol 53 mg/dl (40-60); Potassium 4.1 mmoL/L (3.5-5.1); Sodium 139 mmol/L (136-145); Total Protein,Serum 7.3 g/dl (6.3-8.2); Triglycerides 166 mg/dl (30-150); VLDL Cholesterol 33 mg/dL (0-40)
[2023-06-10 15:36] LABS: Direct LDL Cholesterol 100.38 mg/dL (100-129)
[2023-06-10 15:40] LABS: Free T4 (Free Thyroxine) 0.73 ng/dl (0.78-2.19)
[2023-06-10 15:53] LABS: Thyroid Stimulating Hormone 1.18 uIU/mL (0.465-4.68)
== END 2023-06-10 23:59 ==
LOC: LAB 13:32
PROVIDERS: PCP Family Medicine; Visit Provider Family Medicine
DX: I10 Essential (primary) hypertension (principal); E78.2 Mixed hyperlipidemia; E03.9 Hypothyroidism, unspecified
CPT/HCPCS: 36415; 80053; 80061; 82043; 82570; 84439; 84443

== ENCOUNTER 2023-07-21 12:58 | Outpatient (CLI) | payer MEDICARE, BC, SELFPAY ==
--- NOTE | 2023-07-21 12:58 | MM_ITS ---
PROCEDURE INFORMATION: Exam: Bilateral Screening 3D Mammography Exam date and time: 07/21/2023 12:54 PM Age: 68 years old Clinical indication: Screening examination TECHNIQUE: Imaging protocol: Bilateral Screening tomosynthesis and 2D mammography including computer-aided detection (CAD) when performed. COMPARISON: No relevant prior studies available. FINDINGS: MAMMOGRAPHY: Breast composition: The breasts are heterogeneously dense, which may obscure small masses. Mass: None. Architectural distortion: None. Calcifications: No suspicious calcifications. Asymmetric density: None. Skin thickening: None. Axillary adenopathy: None. IMPRESSION: No mammographic evidence of malignancy. Annual screening is recommended unless otherwise clinically indicated. ASSESSMENT: BI-RADS Category 1: Negative
== END 2023-07-21 23:59 ==
LOC: RAD 12:58
PROVIDERS: PCP Family Medicine; Visit Provider Obstetrics & Gynecology
DX: Z12.31 Encounter for screening mammogram for malignant neoplasm of breast (principal)
CPT/HCPCS: 77063; 77067

== ENCOUNTER 2024-02-10 19:10 | Emergency (ER) | payer SELFPAY ==
[2024-02-10 19:23] VITALS: BP 161/74; PULSE 72; RESP 18; TEMP 36.8; O2SAT 97; BMI 26.4
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
[2024-02-10 19:49] VITALS: BP 181/86; PULSE 76; RESP 18; TEMP 36.6; O2SAT 95; BMI 29.2
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
[2024-02-10] MEDS: ACETAMINOPHEN 500MG TAB 1000 MG PO (20:09)
[2024-02-10] MEDS: METHOCARBAMOL 500MG TABLET 500 MG PO (20:10)
[2024-02-10] MEDS: LIDOCAINE 5% TRANSDERMAL PATCH 1 EACH TP (20:11)
[2024-02-10 21:17] VITALS: BP 158/72; PULSE 70; RESP 17; TEMP 36.8; O2SAT 98
[2024-02-10 21:32] LABS: HIV (1&2) Antibody Rapid NONREACTIVE (NONREACTIVE)
[2024-02-12 08:21] LABS: HCV Ab Non Reactive (Non Reactive)
== END 2024-02-10 21:45 | disposition home or self-care (01) ==
LOC: UTC 19:36 → ER 19:46
PROVIDERS: Emergency Provider Emergency Medicine; PCP Family Medicine
DX: M79.10 Myalgia, unspecified site (principal); M54.2 Cervicalgia; M25.512 Pain in left shoulder; R51.9 Headache, unspecified; V89.2XXA Person injured in unspecified motor-vehicle accident, traffic, initial encounter; Y93.9 Activity, unspecified; Y92.9 Unspecified place or not applicable
CPT/HCPCS: 70450; 72125; 86803; 87389; 99284

== ENCOUNTER 2025-01-12 11:40 | Outpatient (CLI) | payer MEDICARE, BC, SELFPAY ==
--- OUTSIDE RECORDS SUMMARY | 2023-08-28 11:45 | XMS_ITS ---
Author Organization [facility] Address [address] [facility] [address] [place] [id number] Care Team Providers Care Food Beverage Server Name Role Phone Osmin Don Primary Care Provider Dennis Joe Unavailable [phone] Results Component Value Reference Range Notes P-T4 Free (thyroxine) Reviewed date:09/02/2023 04:58:13 PM Interpretation:Normal Performing Lab: Notes/Report: Test performed by [facility] [address] [place] [address] , [facility], [place] [address] Ricky Johnson MD, Product Development Ecologist CLIA: [id number] Thyroxine Free (free T4) 1.28 0.86-1.76 ng/dL P-TSH Reviewed date:09/02/2023 04:58:13 PM Interpretation:0.13 Performing Lab: Notes/Report: Test performed by [facility] [address] [place] [address] , [address], [place] [address] Ricky Johnson MD, Product Development Ecologist CLIA: [id number] TSH 0.13 0.43-5.25 mU/L REASON FOR VISIT labwork Medications Medication SIG (Take, Route, Frequency, Duration) Notes Start Date End Date Status Synthroid 75 MCG 1 tablet in the morn ing on an empty stomach Orally Once a day; Duration: 90 days 06/15/2023 Active FLAX SEED DAILY PO Active ZyrTEC Allergy 10 MG 1 tab(s) orally onc e a day; Duration: 30 days 02/10/2019 Active Rosuvastatin Calcium 10 MG 1 tab(s) oral ly once a day; Duration: 90 days 01/06/2022 Active Flonase Allergy Relief 50 MCG/ACT 1 spray(s) intranasally once a day; Duration: 30 day(s) 02/10/2019 Active Estradiol 1 MG 1 tab(s) orally once a day Active B-12 1000 MCG 1 tab(s) orally once a day; Duration: 30 day(s) Active Vitamin E 400 UNIT 1 cap(s) orally once a day Active Pantoprazole Sodium 40 MG 1 tab(s) orally once a day Active Encounters Encounter Location Date Provider Diagnosis [facility] [address] [facility] [address] [place], [place] [id number] 08/28/2023 Dennis Joe Acquired hypothyroid ism E03.9 Assessments Encounter Date Diagnosis (ICD Code) Assessment Notes Treatment Notes Treatment Clinical Notes Section Notes 08/28/2023 Acquired hypothyroidism (ICD-10 - E03.9) Plan Of Treatment No Information Progress Notes * SIMÓN DOWELLOB: 3 (69 yo F)Acc No.[id number]:08/28/2023 Patient: NEFTALY RUIZ Provider: Myla Joe M.D. :1955 A ge:68 Y S ex:Female Date:08/28/2023 Address:[address] [place] [address] [address] [place], [id number] Pcp:Osmin Don Subjective: * Chief Complaints: * 1 . Labwork. * Medical History: * Medications: T aking Estradiol 1 MG Tablet 1 tab(s) orally once a day , Taking Vitamin E 400 UNIT Capsule 1 cap(s) orally once a day , Taking Pantoprazole Sodium 40 MG Tablet Delayed Release 1 tab(s) orally once a day , Taking B-12 1000 MCG Tablet 1 tab(s) orally once a day , Taking FLAX SEED DAILY PO , Taking Flonase Allergy Relief 50 MCG/ACT Suspension 1 spray(s) intranasally once a day , Taking ZyrTEC Allergy 10 MG Tablet 1 tab(s) orally once a day , Taking Rosuvastatin Calcium 10 MG Tablet 1 tab(s) orally once a day , Taking Synthroid 75 MCG Tablet 1 tablet in the morning on an empty stomach Orally Once a day , Medication List reviewed and reconciled with the patient Objective: * Vitals: Assessment: * Assessment: 1. A cquired hypothyroidism - E03.9 Plan: * Treatment: Value Reference Range T hyroxine Free (free T4) 1.28 0.86-1.76 - ng/d L * Karol Agarwal 09/02/2023 4:58: 03 PM >See phone encounter ?LAB: P-TSH (Collection Date & Time - 08/28/2023 03:22 PM)?0.13* Value Reference Range T SH 0.13 L 0.43-5.25 - mU/L * Karol Agarwal 09/02/2023 4:58: 03 PM >See phone encounter * Images: Billing Information: * Visit Code: * Procedure Codes: * Electronic signature of Priscilla Joe MD on 01/13/2025 at 12:26 PM EDT Sign off status: Pending * Provider: Myla Joe M.D. Date: 0 08/28/2023 Generated for Allan bell/Blaise/Penelopeitting on: 1 12:26 PM EDT
--- OUTSIDE RECORDS SUMMARY | 2024-06-21 11:00 | XMS_ITS ---
Author Organization [facility] Address [address] [facility] [address] [place] [id number] Care Team Providers Care After School Program Assistant Name Role Phone Osmin Don Primary Care Provider Allergies No Known Allergies Results Component Value Reference Range Notes CBC Venipuncture (in house) Reviewed date:06/24/2024 10:58:42 AM Interpretation:Normal Performing Lab: Notes/Report: Normal wbc 8.0 3.5 - 10 lymph 40.3 15 - 50 mid 6.2 2 - 15 gran 53.5 35 - 80 rbc 4.22 3.5 - 5.5 hgb 12.9 11.5 - 16.5 hct 37.6 35 - 55 mcv 89.0 75 - 100 mch 30.6 25 - 35 mchc 34.3 31 - 38 platlet 260 100 - 400 P-Comprehensive Metabolic Pa tim (CMP) Reviewed date:06/24/2024 10:58:42 AM Interpretation:(Non-fasting) gluc 139, alk phos 144 Performing Lab: Notes/Report: Test performed by [facility], [facility] , [address], [place] [address] Ricky Johnson MD, Slag Production Worker CLIA: [id number] Sodium 137 135-145 mmol/L Potassium 4.0 3.5-5.3 mmol/L Chloride 103 97-108 mmol/L CO2 24 22-32 mmol/L Glucose 139 65-99 mg/dL BUN 11 8-23 mg/dL Creatinine 0.56 0.50-1.00 mg/dL Calcium 9.4 8.6-10.4 mg/dL eGFR by Creatinine 97 >59 mL/min/1.73m2 Protein 7.0 6.0-8.3 g/dL Albumin 4.1 3.5-5.3 g/dL Alkaline Phosphatase 144 35-121 IU/L ALT (SGPT) 14 <5-47 IU/L AST (SGOT) 14 <5-40 IU/L Bilirubin, Total <0.2 <0.2-1.2 mg/dL A/G Ratio 1.4 1.1-2.5 P-Lipid Panel Reviewed date:06/24/2024 10:58:42 AM Interpretation:(Non-fasting) trigs 250, non-hdl 151 Performing Lab: Notes/Report: Test performed by [facility], [address] , [address] , [place] [address] Ricky Johnson MD, Slag Production Worker CLIA: [id number] Cholesterol 196 <200 mg/dL Triglycerides 250 <150 mg/dL HDL Cholesterol 45 >39 mg/dL Cholesterol / HDL Ratio 4.36 0.00-4.44 Ratio Non-HDL Cholesterol 151 <130 mg/dL LDL Cholesterol (Calculation) 101 <130 mg/dL LDL Cholesterol Levels* Less than 100 mg/dL Optimal 100 to 129 mg/dL Near Optimal/ Above Optimal 130 to 159 mg/dL Borderline High 160 to 189 mg/dL High 190 mg/dL and above Very High * Categories as recommended by the 2004 ATPIII guidelines LDL/HDL Ratio 2.2 <3.3 Ratio LDL Cholesterol Patient History Test Date: 06/21/2024 LDL Results: 101 Units: mg/dL % Change: - P-TSH Reviewed date:06/24/2024 10:58:42 AM Interpretation:0.68 Performing Lab: Notes/Report: Test performed by [facility] [address] [place] [address] , [address], [place] [address] Ricky Johnson MD, Slag Production Worker CLIA: [id number] TSH 0.68 0.43-5.25 mU/L REASON FOR VISIT check up with refills and an Annual Wellness Visit, Needs labs, mammogram, bone density screening, & Prevnar vaccine Medications Medication SIG (Take, Route, Frequency, Duration) Notes Start Date End Date Status ZyrTEC Allergy 10 MG 1 tab(s) orally onc e a day; Duration: 30 days 02/10/2019 Active Flonase Allergy Relief 50 MCG/ACT 1 spray(s) intranasally once a day; Duration: 30 day(s) 02/10/2019 Active Rosuvastatin Calcium 10 MG TAKE 1 TABLET BY MOUTH ONCE DAILY; Duration: 90 Active Clotrimazole-Betamethaso ne 1-0.05 % APPLY TO AFFECTED AREA TWICE DAILY DIRECTED; Duration: 8 Active Synthroid 75 MCG 1 tablet in the morn ing on an empty stomach Orally Once a day; Duration: 90 days 06/15/2023 Active FLAX SEED DAILY PO Active Pantoprazole Sodium 40 MG 1 tab(s) orally once a day Active B-12 1000 MCG 1 tab(s) orally once a day; Duration: 30 day(s) Active Estradiol 1 MG 1 tab(s) orally once a day Not-Taking Vitamin E 400 UNIT 1 cap(s) orally once a day Active Problems Problem Type SNOMED Code ICD Code Onset Dates Problem Status W/U Status Risk Notes Problem Body mass index 30.00 to 34.99 (96286610583072 7) BMI 31.0-31.9,adult (Z68.31) Active confirmed Problem Reactive depression (situational) (21770404) Situational depression (F43.21) Active confirmed Vital Signs Blood pressure systolic 128 mm Hg 06/22/19 25 Blood pressure diastolic 78 mm Hg 025 Heart Rate 81 /min 06/21/2024 Height 60 in 06/21/2024 Weight 159.6 lbs 06/21/2024 BMI 31.17 kg/m2 06/21/2024 Encounters Encounter Location Date Provider Diagnosis [facility] [address] [place], [place] [id number] 06/21/2024 Osmin Don Adult general medica l examination Z00.00 ; Acquired hypothyroidism E03.9 ; Mixed hyperlipidemia E78.2 ; Seasonal allergies J30.2 ; Situational depression F43.21 and BMI 31.0-31.9,adult Z68.31 Assessments Encounter Date Diagnosis (ICD Code) Assessment Notes Treatment Notes Treatment Clinical Notes Section Notes 06/21/2024 Adult general medical examination (ICD-10 - Z00.00) Patient instructed to return to office Annually for Annual Wellness Visits to include annual screenings of Pain assessment, Functional Ability assessment, Cognitive Ability assessment, Fall Risk assessment, Depression screening and Bladder control screening. 06/21/2024 Acquired hypothyroidism (ICD-10 - E03.9) 06/21/2024 Mixed hyperlipidemia (ICD-10 - E78.2) 06/21/2024 Seasonal allergies (ICD-10 - J30.2) 06/21/2024 Situational depression (ICD-10 - F43.21) Discussed medication options. She declines at this time. 06/21/2024 BMI 31.0-31.9,adult (ICD-10 - Z68.31) Plan Of Treatment Treatment Notes Assessment Notes Adult general medical examination Patien t instructed to return to office Annually for Annual Wellness Visits to include annual screenings of Pain assessment, Functional Ability assessment, Cognitive Ability assessment, Fall Risk assessment, Depression screening and Bladder control screening. Situational depression Discussed medicat ion options. She declines at this time. Next Appt Details Follow Up: 6 Months, Reason: Progress Notes * SIMÓN DOWELLOB: 3 (69 yo F)Acc No.[id number]:06/21/2024 Annual Wellness Visit Patient: NEFTALY RUIZ Provider: Osmin Don M.D. :1955 A ge:69 Y S ex:Female Date:06/21/2024 Address:[address] [place] [address] [address], [place], [id number] Subjective: * Chief Complaints: * 1 . check up with refills and an Annual Wellness Visit. 2. Needs labs, mammogram, bone density screening, & Prevnar vaccine. * HPI: H PI: Patient is here today for a check up with refills and a Medicare Annual Wellness Visit. E ndocrinology: She is needing refills on her thyroid medication and is due for lab work. P sychology: She continues to mourn the of her from February 2024. She has not been sleeping well at night. * ROS: O PTHALMOLOGY: Negative for d enies issues with vision. * Medical History: H ypertension, Heart murmur, Gastric polyps, Hypothyroidism, Follows with Dr. David for [employer] care. * Surgical History: C /S x 2 , LAURENT , Cyst removed from ovary , Bladder Tuck , colonoscopy 01/2009, Colonoscopy and Endoscopy 04/2014, C-scope - Adenomatous polyp 09/2019. * Family History: F ather: . M other: alive. 1 son(s) , 1 daughter(s) - healthy. . brother from heart disease, Sister after gastric bypass surgery, Sister with MS. * Social History: C URRENT TOBACCO USE S moking Status: Patient does NOT smoke. C affeine: no. Home smoke detector use: yes. Marital Status: . Past smoking status: no. * Medications: T aking Vitamin E 400 UNIT Capsule 1 cap(s) [...] tab(s) orally once a day , Taking Clotrimazole-Betamethasone 1-0.05 % Cream APPLY TO AFFECTED AREA TWICE DAILY DIRECTED , Taking Synthroid 75 MCG Tablet 1 tablet in the morning on an empty stomach Orally Once a day , Taking Rosuvastatin Calcium 10 MG Tablet TAKE 1 TABLET BY MOUTH ONCE DAILY , Not-Taking Estradiol 1 MG Tablet 1 tab(s) orally once a day , Medication List reviewed and reconciled with the patient * Allergies: N .K.D.A. Objective: * Vitals: W t:159.6, Temp:97.9, BP:128/78, HR:81, Nurse:blue, Ht: 60, BMI:31.17. * Examination: E ndocrinology: General Appearance: N AD. H EENT: u nremarkable.?Neck, Thyroid : n o lymphadenopathy. T hyroid exam: n o enlargement. H eart: R SR. L ungs: c lear to auscultation. E xtremities: n o leg edema. N eurologic Exam: no focal deficits. * Physical Examination: G ENERAL: Pain Assessment: P ain level: 2, on a scale of 0 to 10 (10 being extreme pain). F unctional Status Assessment: P atient response to how often physical health interferes with daiy activities: Frequently Able to perform ADLs-including meal preparation, grocery shopping, housework, laundry, taking medications, or handling finances. Cognitive Status: Alert and oriented. Ambulation Status: Fully ambulatory. F all Risk Assessment: I ndependant in ambulation, adequate lighting in home. Patient has NOT fallen or had trouble walking within the past 12 months. D epression Screening: Describes emotional health as: downhearted. B ladder Control Screening: miranda mendoza. Assessment: * Assessment: 1. A dult general medical examination - Z00.00 (Primary) 2 . A cquired hypothyroidism - E03.9 3 . M ixed hyperlipidemia - E78.2 4 . S easonal allergies - J30.2 5 . S ituational depression - F43.21 6 . B RI 31.0-31.9,adult - Z68.31 Plan: * Treatment: 2. A cquired hypothyroidism L AB: P-Comprehensive Metabolic Panel (CMP) (Collection Date & Time - 06/21/2024 02:46 PM) ( Non-fasting) gluc 139, alk phos 144 Value Reference Range A /G Ratio 1.4 1.1-2.5 - * A lbumin 4.1 3.5-5.3 - g/dL * A lkaline Phosphatase 144 H 35-121 - IU/L * A LT (SGPT) 14 <5-47 - IU/L * A ST (SGOT) 14 <5-40 - IU/L * B ilirubin, Total <0.2 <0.2-1.2 - mg/dL * B UN 11 8-23 - mg/dL * C alcium 9.4 8.6-10.4 - mg/dL * C hloride 103 97-108 - mmol/L * C O2 24 22-32 - mmol/L * C reatinine 0.56 0.50-1.00 - mg/dL * G lucose 139 H 65-99 - mg/dL * P otassium 4.0 3.5-5.3 - mmol/L * S odium 137 135-145 - mmol/L * P rotein 7.0 6.0-8.3 - g/dL * e GFR by Creatinine 97 >59 - mL/min/1.73m2 * Osmin Don 06/24/2024 1 0:58:30 AM >See phone encounter ?LAB: P-TSH (Collection Date & Time - 06/21/2024 02:46 PM)?0.68* Value Reference Range T SH 0.68 0.43-5.25 - mU/L * Osmin Don 06/24/2024 1 0:58:30 AM >See phone encounter 3.?Mixed hyperlipidemia?LAB: P-Comprehensive Metabolic Panel (CMP) (Collection Date & Time - 06/21/2024 02:46 PM)?(Non-fasting) gluc 139, alk phos 144* Value Reference Range A /G Ratio 1.4 1.1-2.5 - * A lbumin 4.1 3.5-5.3 - g/dL * A lkaline Phosphatase 144 H 35-121 - IU/L * A LT (SGPT) 14 <5-47 - IU/L * A ST (SGOT) 14 <5-40 - IU/L * B ilirubin, Total <0.2 <0.2-1.2 - mg/dL * B UN 11 8-23 - mg/dL * C alcium 9.4 8.6-10.4 - mg/dL * C hloride 103 97-108 - mmol/L * C O2 24 22-32 - mmol/L * C reatinine 0.56 0.50-1.00 - mg/dL * G lucose 139 H 65-99 - mg/dL * P otassium 4.0 3.5-5.3 - mmol/L * S odium 137 135-145 - mmol/L * P rotein 7.0 6.0-8.3 - g/dL * e GFR by Creatinine 97 >59 - mL/min/1.73m2 * Osmin Don 06/24/2024 1 0:58:30 AM >See phone encounter ?LAB: P-Lipid Panel (Collection Date & Time - 06/21/2024 02:46 PM)?(Non- fasting) trigs 250, non-hdl 151* Value Reference Range C holesterol / HDL Ratio 4.36 0.00-4.44 - Ratio * C holesterol 196 <200 - mg/dL * H DL Cholesterol 45 >39 - mg/dL * L DL Cholesterol (Calculation) 101 <130 - mg/d L * L DL/HDL Ratio 2.2 <3.3 - Ratio * N on-HDL Cholesterol 151 H <130 - mg/dL * T riglycerides 250 H <150 - mg/dL * Osmin Don 06/24/2024 1 0:58:30 AM >See phone encounter 4.?Situational depression? Notes: Discussed medication options. She declines at this time.?? * Labs: * L ab: CBC Venipuncture (in house) (Collection Date & Time - 06/21/2024) N ormal Value Reference Range w bc 8.0 3.5 - 10 * l ymph 40.3 15 - 50 * m id 6.2 2 - 15 * g ran 53.5 35 - 80 * r bc 4.22 3.5 - 5.5 * h gb 12.9 11.5 - 16.5 * h ct 37.6 35 - 55 * m cv 89.0 75 - 100 * m ch 30.6 25 - 35 * m chc 34.3 31 - 38 * p latlet 260 100 - 400 * Kavita Gutiérrez 06/21/2024 4:38: 18 PM > Osmin Don 06/24/2024 10:58:30 AM >See phone encounter * Procedure Codes: G 0438 ANNUAL WELLNES VST; PERSNL PPS INIT, G2211 Complex e/m visit add on, G0444 ANNUAL DEPRESSION SCREENING 15 MIN, 1090F PRES/ABSN URINE INCON ASSESS, 3288F FALL RISK ASSESSMENT DOCD, 1170F FXNL STATUS ASSESSED, 1159F MED LIST DOCD IN RCRD, 1003F LEVEL OF ACTIVITY ASSESS, 1036F TOBACCO NON-USER, 3017F COLORECTAL CA SCREEN DOC REV, 32878 CBC WITH AUTO DIFF, 3074F SYST BP LT 130 MM HG, 3078F DIAST BP < 80 MM HG * Preventive Medicine: Counseling: E motional health: D iscussed ways to improve socialization. B ladder control: D iscussed ways to control/manage leakage of urine. E xercise: A dvised to start, increase or maintain level of exercise/physical activity. I njury prevention: D iscussed fall prevention. Discussed need for cane/walker. Potential trip hazards discussed. Immunizations: P neumococcal r ecommended. I nfluenza u p to date. Screening / Special Tests: M ammogram R ecent history: 07/21/2023, negative, recommended. C olonoscopy R ecent history: 10/04/2019, polyps, diverticulosis, hemorrhoids, repeat 2-3 years. B one mineral Density R ecent history: 04/01/2006, normal, recommended. * Follow Up: 6 Months * Images: Billing Information: * Visit Code: 12676 Office Visit, Est Pt., Level 3. Modifiers: 25 * Procedure Codes: G0438 ANNUAL WELLNES VST; PERSNL PPS INIT. G2 Complex e/m visit add on. G0444 ANNUAL DEPRESSION SCREENING 15 MIN. 1090F PRES/ABSN URINE INCON ASSESS. 3288F FALL RISK ASSESSMENT DOCD. 1170F FXNL STATUS ASSESSED. 1159F MED LIST DOCD IN RCRD. 1003F LEVEL OF ACTIVITY ASSESS. 1036F TOBACCO NON-USER. 3017F COLORECTAL CA SCREEN DOC REV. 09365 CBC WITH AUTO DIFF. 3074F SYST BP LT 130 MM HG. 3078F DIAST BP < 80 MM HG. * Electronic signature of Osmin Don MD on 01/13/2025 at 12:25 PM EDT Sign off status: Pending * Provider: Osmin Don M.D. Date: 0 06/21/2024 Generated for Printi ng/[place]/eTransmitting on: 1 12:25 PM EDT History and Physical Notes * HPI (History of Present Illness) Category Sub-Category Detail Notes Category Not es HPI Patient is here today for a [facility] k up with refills and a Medicare Annual Wellness Visit Physical Examination Category Sub-Category Detail Notes Section Note s GENERAL Pain Assessment: Pain level: 2, on a scale of 0 to 10 (10 being extreme pain) Functional Status Assessment: Patient response to how often physical health interferes with daiy activities: Frequently Able to perform ADLs-including meal preparation, grocery shopping, housework, laundry, taking medications, or handling finances. Cognitive Status: Alert and oriented. Ambulation Status: Fully ambulatory Fall Risk Assessment: Independant in amb ulation, adequate lighting in home. Patient has NOT fallen or had trouble walking within the past 12 months Depression Screening: Describes [facility] as: downhearted Bladder Control Screening: small problem s Examination Category Sub-Category Detail Notes Category Not es Endocrinology HEENT: unremarkable Neck, Thyroid : no lymphadenopathy Heart: RSR Lungs: clear to auscultatio n Extremities: no leg edema General Appearance: NAD Neurologic Exam: no focal deficits Thyroid exam: no enlargement
--- OUTSIDE RECORDS SUMMARY | 2025-01-13 12:26 | XMS_ITS | Clinical Summary ---
Author Organization [facility] Address [address] [place] [address] Care Team Providers Care Transition Nurse Name Role Phone Frederick Santos MD Primary Care Provider [phone] Allergies No known active allergies Medications cyanocobalamin (VITAMIN B-12) 2000 MCG tablet tablet Active Flaxseed, Linseed, (Flaxseed Oil) 1000 MG capsule Acti ve Ginkgo Biloba 100 MG capsule Activ e Protonix 40 MG EC tablet 8 Active Turmeric 400 MG capsule Active APPLE CIDER VINEGAR PO Take by mouth. Active escitalopram (Lexapro) 10 MG tabletIndication s:Depression, unspecified depression type Take 1 tablet by mouth Daily. 90 tablet 2 5 Active traZODone (DESYREL) 50 MG tabletIndication s:Depression, unspecified depression type Take 1 tablet by mouth Every Night. 90 tablet 2 5 Active meloxicam (Mobic) 15 MG tabletIndication s:Trigger middle finger, unspecified laterality,Left elbow pain,Chronic left shoulder pain Take 1 tablet by mouth Daily. 90 tablet 1 5 Active levothyroxine (SYNTHROID, LEVOTHROID) 75 MCG tablet Take 1 tablet by mouth Every Morning. 90 tablet 5 Active rosuvastatin (CRESTOR) 10 MG tablet Take 1 tablet by mouth Every Night. 90 tablet 3 5 Active levothyroxine (SYNTHROID, LEVOTHROID) 75 MCG tablet 5 12/21/19 25 Discontinu ed(Reorder ) rosuvastatin (CRESTOR) 10 MG tablet 5 12/24/19 25 Discontinu ed(Reorder ) Active Problems Problem Noted Date Diagnosed Date Left arm pain 10/20/2024 Assessment & Plan (10/20/2024 3:22 PM EDT): Improved if not resolved. Mainly medial epicondylitis. She is okay continuing the meloxicam and stretching, would like to cancel Ortho appointment for now. Trigger middle finger of left hand 10/20/2024 Assessment & Plan (10/20/2024 3:23 PM EDT): Limping difficulty with triggering which is painful of her left long finger. Meloxicam has not helped. Instigate the status of her hand surgery appointment. Depression 09/22/2024 Elevated blood pressure read ing in office without diagnosis of hypertension 09/22/2024 Assessment & Plan (10/20/2024 3:15 PM EDT): White coat hypettension ( will contiue to monitor) Assessment & Plan (09/22/2024 11:29 AM EDT): Amb monitoring.Recommend nutritional counseling and Mediterranean diet. Per CDC 150 min aerobic physical activity weekly Hypothyroidism Assessment & Plan (09/22/2024 11:30 AM EDT): Seen on Synthroid 75 mcg daily. She indicates blood work was done in June. Will request records. Clinically euthyroid Hyperlipidemia Assessment & Plan (09/22/2024 11:31 AM EDT): Lipid abnormalities are stable Plan: Continue same medication/s without change. Counseled patient on lifestyle modifications to help control hyperlipidemia. Patient Treatment Goals: LDL goal is under 100 Followup in 6 months. GERD (gastroesophageal reflux disease) Assessment & Plan (09/22/2024 11:31 AM EDT): Describes annual EGDs with Dr. Pierce in [facility] Date Type Department Care Team Description 12/23/2024 Refill [facility] [address] [place] [address] Frederick Santos MD 12/13/2024 Refill [facility] [address] [place] [address] Frederick Santos MD 10/20/2024 2:00 PM EDT Office Visit [facility] [address] [place] [address] Frederick Santos MD Hypothyroidism, unspecified type (Primary Dx); Elevated blood pressure reading in office without diagnosis of hypertension; Depression, unspecified depression type; Trigger middle finger of left hand 10/20/2024 Travel from Last 3 Months Immunizations Immunization Administration Dates Next Due 31-influenza Vac Quardvalent Preservativ 018,12/29/2016 ABRYSVO (RSV, 60+ or pregnan t women 32-36 wks) 02/19/2023 COVID-19 (MODERNA) 12YRS+ (SPIKEVAX) 02/19/2023 COVID-19 (MODERNA) 1st,2nd,3 rd Dose Monovalent 09/20/2021,07/11/2020,06/13/2020 COVID-19 (MODERNA) BIVALENT 12+YRS 01/23/2022 COVID-19 (MODERNA) Monovalen t Original Booster 02/12/2021 COVID-19 (PFIZER) 12YRS+ (COMIRNATY) 12/17/2023 Fluzone High-Dose 65+YRS 12/17/2023,01/03/2020 Fluzone High-Dose 65+yrs 01/23/2022,02/28/2021 Pneumococcal Polysaccharide (PPSV23) 01/27/2019 Social History Tobacco Use Types Packs/Day Years Used Date Smoking Tobacco: Never Smokeless Tobacco: Never Alcohol Use Standard Drinks/Week Comments Yes 1 (1 standard drink = 0.6 oz pur e alcohol) Week Comments Unknown Sex and Gender Information Value Date Recorded Sex Assigned at Not on file Legal Sex Female 10:44 AM EDT Gender Identity Not on file Sexual Orientation Not on file Last Filed Vital Signs Vital Sign Reading Time Taken Comments Blood Pressure 132/72 10/20/2024 3:10 PM EDT Pulse 64 10/20/2024 2:13 PM EDT Temperature - - Respiratory Rate - - Oxygen Saturation 98% 10/20/2024 2:13 PM EDT Inhaled Oxygen Concentration - - Weight 70.7 kg (155 lb 12.8 oz) 10/20/2024 2:13 PM EDT Height 152.4 cm (5') 10/20/2024 2:13 PM EDT Body Mass Index 30.43 10/20/2024 2:13 PM EDT Plan of Treatment Upcoming Encounters Date Type Department Care Team (Late st Contact Info) Description 04/24/2025 3:00 PM EST Office Visit [facility] [address] [place] [address] Frederick Santos MD [address] [place] [address] Health Maintenance Due Date Last Done Comments DXA SCAN 1955 LIPID PANEL 1955 TDAP/TD VACCINES (1 - Tdap) 1972 MAMMOGRAM 1993 COLOGUARD 1998 COLON CANCER SCREENING 5 JAYLAA Osmin SIGMOIDOSCOPY 1998 COLONOSCOPY 1998 [address]AL CANCER SCREENING 1998 CT COLONOGRAPHY 1998 FECAL OCCULT BLOOD TEST 1998 FIT Testing (1 year) 1998 ZOSTER VACCINE (1 of 2) 2003 Pneumococcal Vaccine 50+ (2 of 2 - PCV) 01/28/2020 01/27/2019 ANNUAL WELLNESS VISIT 09/21/2024 HEPATITIS C SCREENING 09/21/2024 INFLUENZA VACCINE 11/11/2024 12/17/2023, , 02/28/2021, Additional history exists COVID-19 Vaccine (2023-2 5 season) 2024 12/17/2023, 02/19/2023, 01/23/2022, Additional history exists Insurance MEDICARE A & B [employer] MEDICARE ADVANTAGE [facility] Care Teams Transition Nurse Relationship Specialty Start Date End Date Frederick Santos MD [address] [place] [address] PCP - General Internal Medicine 09/22/24
--- OUTSIDE RECORDS SUMMARY | 2025-01-13 12:26 | XMS_ITS | Encounter Summary ---
Author Organization [facility] Address [address] [place] [id number] Care Team Providers Care [employer] Team Leader Name Role Phone Frederick Santos MD Primary Care Provider [phone] Reason for Visit * Reason Onset Date Comments Med Refill 12/13/2024 Encounter Details Date Type Department Care Team (Late st Contact Info) Description 12/13/2024 Refill [facility] [address] [place] [phone] [place] [address] [place] [address] Social History Tobacco Use Types Packs/Day Years Used Date Smoking Tobacco: Never Smokeless Tobacco: Never Alcohol Use Standard Drinks/Week Comments Yes 1 (1 standard drink = 0.6 oz pur e alcohol) Week Comments Unknown Sex and Gender Information Value Date Recorded Sex Assigned at Not on file Legal Sex Female 10:44 AM EDT Gender Identity Not on file Sexual Orientation Not on file documented as of this encounter Progress Notes * Rosalba Charlton MA - 12/20/2024 12:15 PM EDTAddended by: ROSALBA CHARLTON on: 12/20/2024 12:15 PM Modules accepted: Orders documented in this encounter Miscellaneous Notes * Telephone Encounter - Farrukh Salcedo RegSched Rep - 12/15/2024 1:41 PM EDT Caller: MAGALYSCHIQUI Relationship: Emergency Contact Best call back number: [phone] What is the best time to reach you: ANY Who are you requesting to speak with (clinical staff, provider, specific staff member): ANY Do you know the name of the person who called: SELF What was the call regarding: PATIENT REQUESTS A CALLBACK ON THE STATUS OF HER REFILL REQUESTS. PCP HAD PREVIOUSLY STATED HE WOULD FILL THE PATIENT'S MAINTENANCE MEDICATIONS AND THEY DO NOT KNOW WHY THESE HAVE BEEN DENIED. THEY WERE PRESCRIBED BY HER PREVIOUS PCP. * Telephone Encounter - Lorena William MA - 12/13/2024 4:13 PM EDT Rx Refill Note Requested Prescriptions Pending Prescriptions Disp Refills levothyroxine (SYNTHROID, LEVOTHROID) 75 MCG tablet rosuvastatin (CRESTOR) 10 MG tablet 90 tablet Last office visit with prescribing clinician: 10/20/2024 Last telemedicine visit with prescribing clinician: Visit date not found Next office visit with prescribing clinician: 04/24/2025 Refused: Historical Provider Lorena William MA 12/13/24, 16:14 EDT documented in this encounter Plan of Treatment Upcoming Encounters Date Type Department Care Team (Late st Contact Info) Description 04/24/2025 3:00 PM EST Office Visit [facility] [address] [place] [address] Frederick Santos MD [address] [place] [address] documented as of this encounter Visit Diagnoses Not on filedocumented in this encounter Care Teams [employer] Team Leader Relationship Specialty Start Date End Date Frederick Santos MD [address] [place] [address] PCP - General Internal Medicine 09/22/24 documented as of this encounter
--- OUTSIDE RECORDS SUMMARY | 2025-01-13 12:26 | XMS_ITS | Patient Health Record ---
[facility] Address [address] [facility] [address] [place] [id number] Care Team Providers Care Clinical Instructor Name Role Phone Osmin Don Primary Care Provider [phone] Allergies No Known Allergies Results Component Value [...] 144 Performing Lab: Notes/Report: Test performed by [facility], [employer] [facility] , [address], [place] [address] Ricky Johnson MD, Housekeeper/Custodian/Laundry Worker CLIA: [id number] Sodium 137 135-145 mmol/L Potassium 4.0 3.5-5.3 [...] 151 Performing Lab: Notes/Report: Test performed by [facility], [address] , [facility], [place] [address] Ricky Johnson MD, Housekeeper/Custodian/Laundry Worker CLIA: [id number] Cholesterol 196 <200 mg/dL Triglycerides 250 <150 [...] Interpretation:0.68 Performing Lab: Notes/Report: Test performed by [facility], [address] , [place] [address] Ricky Johnson MD, Housekeeper/Custodian/Laundry Worker CLIA: [id number] TSH 0.68 0.43-5.25 mU/L Reason For Referral No Information Medications Medication SIG (Take, Route, Frequency, Duration) Notes Start Date End Date Status ZyrTEC Allergy 10 MG 1 tab(s) orally onc e a day; Duration: 30 days 02/10/2019 Active FLAX SEED DAILY PO Active Flonase Allergy Relief 50 MCG/ACT 1 spray(s) intranasally once a day; Duration: 30 day(s) 02/10/2019 Active Pantoprazole Sodium 40 MG 1 tab(s) orally once a day Active Medrol 4 MG as directed Orally 06/24/2024 Active B-12 1000 MCG 1 tab(s) orally once a day; Duration: 30 day(s) Active Estradiol 1 MG 1 tab(s) orally once a day Not-Taking Vitamin E 400 UNIT 1 cap(s) orally once a day Active Rosuvastatin Calcium 10 MG 1 tablet Orally Once a day; Duration: 90 days Active Synthroid 75 MCG 1 tablet in the morn ing on an empty stomach Orally Once a day; Duration: 90 days 06/15/2023 Active Clotrimazole-Betamethaso ne 1-0.05 % APPLY TO AFFECTED AREA TWICE DAILY DIRECTED; Duration: 8 Active Immunizations Vaccine Route Administration Date Status Comme nts xFluzone Intradermal (18-64yrs)-trivalent ID Intradermal 01/26/2013 Administered xFluzone Intradermal (18-64yrs)-trivalent ID Intradermal 01/31/2014 Administered xFluzone High Dose-private (65yr&older) Unknown 12/17/2023 Administered xFluzone (6mos and older)-trivalent IM Intramuscular 01/26/2010 Administered xFluzone (6mos and older)-trivalent IM Intramuscular 02/17/2012 Administered xFlu shot-36 months and older IM Intramuscular 03/22/2005 Administered xFlu shot-36 months and older IM Intramuscular 03/12/2006 Administered xFlu shot-36 months and older IM Intramuscular 03/11/2007 Administered xFlu shot-36 months and older IM Intramuscular 03/26/2009 Administered xFlu shot-36 months and older IM Intramuscular 01/06/2011 Administered Tetanus Tdap-Adacel (over 7yrs) IM Intramuscular 02/10/2013 Administered PNEUMOVAX 23 VACCINE IM Intramuscular 01/27/2019 Administe red Fluzone Quad (6months&older) IM Intramuscular 12/29/2016 Administered Fluzone Quad (6months&older) IM Intramuscular 01/26/2018 Administered Fluzone Intradermal Quad private(18-64yrs) ID Intradermal 01/31/2015 Administered Fluzone Intradermal Quad private(18-64yrs) ID Intradermal 01/30/2016 Administered Fluzone High Dose (65yr and older) IM Intramuscular 01/03/2020 Administered Fluzone High Dose (65yr and older) IM Intramuscular 02/28/2021 Administered Fluzone High Dose (65yr and older) Unknown 01/23/2022 Administered COVID 19 Moderna Unknown 06/13/2020 Administered COVID 19 Moderna Unknown 07/11/2020 Administered COVID 19 Moderna Unknown 02/12/2021 Administered COVID 19 Moderna Unknown 09/20/2021 Administered Problems Problem Type SNOMED Code ICD Code Onset Dates Problem Status W/U Status Risk Notes Problem Essential hypertension (11949797) HTN [Hypertension] (401.9) Active confirmed Problem Hypothyroidism (52329231) Hypothyroidism (acquired) (E03.9) Active confirmed Problem Essential hypertension (31615855) Essential hypertension (I10) Active confirmed Problem Dysuria (79105399) Dysuria (R30.0) Active confirmed Problem Seasonal allergy (068094207) Seasonal allergies (J30.2) Active confirmed Problem Sciatic nerve lesion (379347691) Piriformis syndrome of right side (G57.01) Active confirmed Problem Mixed hyperlipidemia (451934061) Mixed hyperlipidemia (E78.2) Active confirmed Problem Trochanteric bursitis of right hip (694045014983971) Trochanteric bursitis, right hip (M70.61) Active confirmed Problem Acute cystitis (12687865) Acute cystitis with hematuria (N30.01) Active confirmed Problem Acquired hypothyroidism (199003020) Acquired hypothyroidism (E03.9) Active confirmed Problem Reactive depression (situational) (27519124) Situational depression (F43.21) Active confirmed Problem Atopic dermatitis (15176971) Atopic dermatitis (L20.9) Active confirmed Problem Body mass index 30.00 to 34.99 (533825720814833) BMI 31.0-31.9,adult (Z68.31) Active confirmed Problem Sciatica (08547972) Acute left-sided low back pain with left-sided sciatica (M54.42) Active confirmed Problem Muscle spasm of thoracic back (855158786550739) Spasm of thoracic back muscle (M62.830) Active confirmed Vital Signs Heart Rate 81 /min 06/21/2024 Blood pressure diastolic 78 mm Hg 06/21/2024 Height 60 in 06/21/2024 Blood pressure systolic 128 mm Hg 06/21/2024 Weight 159.6 lbs 06/21/2024 BMI 31.17 kg/m2 06/21/2024 Encounters Encounter Location Date Provider Diagnosis [facility] [address] [facility] [address], [place] [id number] 06/21/2024 R Richi Don Adult general medica l examination Z00.00 ; Acquired hypothyroidism E03.9 ; Mixed hyperlipidemia E78.2 ; Seasonal allergies J30.2 ; Situational depression F43.21 and BMI 31.0-31.9,adult Z68.31 [facility] [address] [facility] [address] [place], [place] [id number] 03/14/2024 R Richi Don Acquired hypothyroid ism E03.9 [facility] [address] [facility] [address] [place], [place] [id number] 06/14/2024 R Richi Don [facility] [address] [facility] [address] [place], [place] [id number] 06/24/2024 R Richi Don [facility] [address] [facility] [address] [place] [id number] 09/14/2024 Osmin Don Acquired hypothyroid ism E03.9 Assessments Encounter Date Diagnosis (ICD Code) Assessment Notes Treatment Notes Treatment Clinical Notes Section Notes 03/14/2024 Acquired hypothyroidism (ICD-10 - E03.9) 06/21/2024 Acquired hypothyroidism (ICD-10 - E03.9) 06/21/2024 Adult general medical examination (ICD-10 - Z00.00) Patient instructed to return to office Annually for Annual Wellness Visits to include annual screenings of Pain assessment, Functional Ability assessment, Cognitive Ability assessment, Fall Risk assessment, Depression screening and Bladder control screening. 09/14/2024 Acquired hypothyroidism (ICD-10 - E03.9) 06/21/2024 Mixed hyperlipidemia (ICD-10 - E78.2) 06/21/2024 Seasonal allergies (ICD-10 - J30.2) 06/21/2024 Situational depression (ICD-10 - F43.21) Discussed medication options. She declines at this time. 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
--- OUTSIDE RECORDS SUMMARY | 2025-01-13 12:27 | XMS_ITS | Encounter Summary ---
[facility] [address] [place] [address] Care Team Providers Care Residential Sales Rep Name Role Phone Frederick Santos MD Primary Care Provider [phone] Reason for Visit * Reason Comments Med Refill Encounter Details Date Type Department Care Team (Late st Contact Info) Description 12/23/2024 Refill [facility] [address] [place] [address] Frederick Santos MD [address] [place] [address] Social History Tobacco Use Types Packs/Day [...] on file documented as of this encounter Miscellaneous Notes * Telephone Encounter - Dominique Arroyo MA - 12/24/2024 11:30 AM EDT Duplicate request documented in this encounter Plan of Treatment Upcoming Encounters Date Type Department Care Team (Late st Contact Info) Description 04/24/2025 3:00 PM EST Office Visit [facility] [address] [place] [address] Frederick Santos MD [address] [place] [address] documented as of this encounter Visit Diagnoses Not on filedocumented in this encounter Care Teams Residential Sales Rep Relationship Specialty Start Date End Date Frederick Santos MD [address] [place] [address] PCP - General Internal Medicine 09/22/24 documented as of this encounter
== END 2025-01-12 23:59 ==
LOC: LAB.DROPOF 01-13 12:24
PROVIDERS: PCP Nurse Practitioner; Visit Provider Nurse Practitioner
DX: N39.0 Urinary tract infection, site not specified (principal)
CPT/HCPCS: 87086; 87088